=== PATIENT | male | born 1955 | race Caucasian/White ===

== ENCOUNTER 2024-04-23 09:10 | Day surgery (SDC) | payer MEDICARE, MEDICAID, SELFPAY ==
[2024-04-23] VITALS (9 sets, daily range): BP systolic 106–130; BP diastolic 70–79; PULSE 71–90; RESP 12–18; TEMP 36.6; O2SAT 92–98; BMI 27.1
[2024-04-23] MEDS: MIDAZOLAM INJ 1 MG/ML VIAL 2 ML (ASD USE ONLY) 2 MG IV (10:24)
[2024-04-23] MEDS: fentaNYL CIT INJ 50 mCg/ML AMP 2ML (ASD USE ONLY) IV (10:24)
[2024-04-23] MEDS: DiphenhydrAMINE INJ 50 MG/ML VIAL 25 MG IV ×2 (10:25→10:36)
--- NOTE | 2024-04-23 10:42 | SUR.PHASEII ---
PATIENT INTO RECOVERY WITH NO ACUTE DISTRESS NOTED, V/S STABLE, NO COMPLAINTS OF PAIN OR NAUSEA AT THIS TIME, PATIENT REPOSITIONED FOR COMFORT, PATIENT ACTIVELY PASSING FLATUS, REPORT RECEIVED FROM YUE ROMAN.
== END 2024-04-23 11:40 | disposition home or self-care (01) ==
PROVIDERS: PCP Family Medicine; Referring Provider Surgery; Visit Provider Surgery
PROC: 0DBE8ZX Excision of Large Intestine, Via Natural or Artificial Opening Endoscopic, Diagnostic (ICD-10-PCS; CPT 45380; principal; 2024-04-23 10:45)
DX: Z12.11 Encounter for screening for malignant neoplasm of colon (principal); K64.9 Unspecified hemorrhoids; Z86.0101 Personal history of adenomatous and serrated colon polyps; K57.30 Diverticulosis of large intestine without perforation or abscess without bleeding
CPT/HCPCS: G0105; J1200; J2250; J3010

== ENCOUNTER 2024-05-11 14:11 | Outpatient (AMB) | payer MEDICARE, MEDICAID, SELFPAY ==
[2024-05-11 14:25] VITALS: BP 137/83; PULSE 91; RESP 18; TEMP 36.1; O2SAT 96; BMI 27.0
--- NOTE | 2024-05-11 14:25 | GSCOFFNT_ITS ---
Vital Signs - [facility] 05/11/24 14:25 Height 1.68 m Height Method Stated Weight 76.232 kg Weight Measurement Method Standing Scale BMI 27.0 BP 137/83 H Blood Pressure Source Automatic Cuff Blood Pressure Location Right Upper Arm Position Sitting Respiration 18 Pulse 91 Pulse Source Monitor Temp 97.0 F Temp Source Temporal Artery Scan Pulse Oximetry (%) 96 Oxygen Delivery Method Room Air Med/Allergies Allergies & Medications Allergies RADIOACTIVE DYES Allergy (Uncoded 05/11/24 14:27) Anaphylaxis Medication Reconciliation loratadine 10 mg tablet 10 mg PO QDAY 10/28/23 [History Confirmed 05/11/24] losartan 25 mg tablet 25 mg PO QDAY 10/28/23 [History Confirmed 05/11/24] metformin 500 mg tablet 500 mg PO BID 10/28/23 [History Confirmed 05/11/24] pravastatin 20 mg tablet 20 mg PO QDAY 10/28/23 [History Confirmed 05/11/24] MA Intake Visit Data Collection New Patient or Established: Established Patient (seen at [facility] within 3 years) Reason for Visit:: F/U COLON RESULTS Pain Present Currently: No Pain scale:: 0 Pain Scale Used: [employer]st Required: No PCP or OBGYN visit in last 3 months: Yes Hx Now: No Do You Feel Safe at Home: Yes Authorities Contacted: N/A Smoking Status Smoking Status: Never smoker Immunization / Flu Flu Vaccine in the Last 12 Months: No Flu Vaccine Exclusion Criteria: No Exclusion Criteria Past Medical History Past Medical History NEUROLOGIC: Negative Neurological Disorders or Seizures CARDIAC: Positive Cardiac Disorders, Hypercholesterolemia and Hypertension; Negative Congestive Heart Failure RESPIRATORY: Negative Chronic Obstructive Pulmonary Disease (COPD) GASTROINTESTINAL: Positive Gastrointestinal Disorders GENITOURINARY: Negative Genitourinary Disorders or Renal Disease MUSCULOSKELETAL: Positive Arthritis and Carpal Tunnel Syndrome (left wrist) ENDOCRINE: Positive Diabetes Mellitus Type 2; Negative Diabetes Mellitus Type 1 HEMATOLOGIC: Negative Blood Disorders or Anemia OTHER HISTORY: Positive Chicken Pox and Measles; Negative Hospitalization, Down Syndrome, Developmental Delay, Falls, Blood Transfusions or Anesthesia Reactions Surgical History SURGICAL: Positive Bowel Surgery (x2) Social History SMOKING STATUS: Smoking status: Never smoker SECOND HAND EXPOSURE: second hand exposure: No ALCOHOL: Alcohol Intake: Former ALCOHOL FREQUENCY: Alcohol Intake Frequency: holidays/special occasions only HOUSING: Housing: House HPI HPI Narrative 69M with history of colonic polyp now s/p surveillance colonoscopy here to discuss results. Pt reports feeling well overall with no complaints after the scope ROS Review of Systems Systems Reviewed: All systems reviewed, normal except as documented Objective/Exam General General Appearance: alert, cooperative and well groomed Resp Respiratory exam: Absent respiratory distress Results Colonoscopy report reviewed: hemorrhoids, diverticulosis Assessment & Plan Diagnosis / Problem List (1) Encounter to discuss colonoscopy results: Status: Acute Assessment & Plan: 69M with history of colonic polyp now s/p surveillance colonoscopy with findings of hemorrhoids and diverticulosis. Given suboptimal prep and pt's history I recommended repeat scope in 5 years. All questions were answered and pt expressed understanding Advanced Care Planning Advance care planning discussed with:: patient Office Procedures GNS Level of Care Nursing/Assessment Patient Status: Established Patient Nursing Assessment/Reassesment: Medication Reconciliation, Update PMH in EMR and Vital Signs Coordination of Care: Complex Care and Chronic Disease 1-5, Education Complex Pt/Fam, Consent,records obtained, informed consent, Results/Orders obtained and Staff clarify orders Established Patient Charge Established Patient Point Assignment: 95 Established Patient Point Charge: EP Level 3 (80-115) Patient Portal Questionaires Social History Living Situation History Housing: House Tobacco History Smoking Status: Never smoker Second Hand Smoke Exposure: No Alcohol History Alcohol Intake: Former Alcohol Intake Frequency: holidays/special occasions only Domestic Abuse History Do You Feel Safe at Home: Yes Review of Systems Report any current symptoms Only answer those that you have currently: Past Medical History Past Medical History Have you ever been diagnosed with any of the following: Neurological Problems Seizures: No Cardiology Problems Hypercholesterolemia: Yes Congestive Heart Failure: No Hypertension: Yes Respiratory Problems Chronic Obstructive Pulmonary Disease (COPD): No Genital/Urinary Problems Renal Disease: No Musculoskeletal Problems Arthritis: Yes Carpal Tunnel Syndrome: Yes (left wrist) Endocrine Problems Diabetes Mellitus Type 1: No Diabetes Mellitus Type 2: Yes Blood Problems Anemia: No Other Problems Hospitalization: No Down Syndrome: No Developmental Delay: No Falls: No Blood Transfusions: No Anesthesia Reactions: No Chicken Pox: Yes Measles: Yes
== END 2024-05-11 14:54 | disposition home or self-care (01) ==
LOC: HODSRG 14:11
PROVIDERS: PCP Family Medicine; Referring Provider Family Medicine; Supervising Provider Surgery; Visit Provider Surgery
DX: Z71.2 Person consulting for explanation of examination or test findings (principal); K64.9 Unspecified hemorrhoids; K57.90 Diverticulosis of intestine, part unspecified, without perforation or abscess without bleeding
CPT/HCPCS: 99213; G0463